=== PATIENT | female | born 1985 | race Caucasian/White ===

== ENCOUNTER 2019-10-14 15:13 | Outpatient (CLI) | payer BC ==
--- NOTE | 2019-10-14 15:55 | ULT ---
Thyroid sonogram HISTORY: Hypothyroidism. FINDINGS: The right thyroid lobe measures up to 4.9 cm length. At the midportion is a well-circumscri bed oval predominantly hypoechoic but slightly heterogeneous nodule that is 1.3 cm length by 0.8 cm depth. A well-circumscribed 0.8 cm hypoechoic nodule lies immediately superior and medial to the firs t. Isthmus is 0.2 cm thick. Left thyroid lobe is 4.7 cm length with multiple nodules. The largest nodule is at the central portio n, well-circumscribed, hypoechoic, 1.3 cm length by 0.7 cm depth. No calcifications. IMPRESSION : Small nonspecific bilateral thyroid lobe nodules, TI RADS 4 and less. Based on nodule sizes, sonographic follow-up at 1, 2, 3, and 5 years is appropriate to evaluate for s tability.
== END 2019-10-14 15:14 | disposition home or self-care (01) ==
LOC: SCSULT 15:13
PROVIDERS: ATTEND Internal Medicine Endocrinology, Diabetes & Metabolism
DX: E03.9 Hypothyroidism, unspecified (principal); E04.2 Nontoxic multinodular goiter
CPT/HCPCS: 76536